=== PATIENT | female | born 1970 | race Caucasian/White ===

== ENCOUNTER 2017-01-07 11:34 | Day surgery (SDC) | payer MEDICARE, MEDICAID ==
--- NOTE | 2017-01-03 14:01 | PCM.ANEPRE ---
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 On the day of surgery, she should have an EKG for baseline, as well, Renal Function Set for baseline creatinine and K (unless labs and EKG is found which I have not found), as arrhythmia are rarely associated with dermatomyositis. Otherwise, she appears as well optimized for surgery. A recent CXR was WITHOUT fibrosis or sign of chronic aspiration/PNA. Of note, review of notes suggests dysphagia a significant problem. Review articles warn about aspiration events intra-op and suggest ETT if concern for aspiration is noted on physical exam. Having not assessed this patient, I cannot comment on this risk. Additionally, warning given regarding longer than expected duration of NMB. Consideration as to risk of succinylcholine should also be considered. Post operative respiratory depression has been noted, and the patient should be warned, if intubated, that delayed weaning from mechanical ventilation is possible. In essence, this is a very minor surgical procedure, for a needed central line, with potential grave anesthetic consequences. The patient should be fully consented for a potentially schuyler post-op course and evaluated at the bedside prior to surgery. But I do not see any reason to delay surgery. Darion Davis MD January 03, 2017 14:01
[~2017-01-07] VITALS: Ht 165.1 cm; Wt 116.0 kg
[~2017-01-07 11:34] MED LIST: ACET325C PO; ASCO-294 PO; ASPI81TA3 PO; BISA10SU61 RC; CALC600T12 PO; CHLO15MO3 MM; CHOL10008 PO; FEXO-106 PO; FLUO20CA25 PO; FLUT15.88 NS; FOLI0.4T2 PO; HYDR-3605 PO; LISI10TA PO; Lactated Ringer's 1,000 ML IV SCH; MAGN400O4 PO; METH25VI9 SUBQ; METO25TA99 PO; MYCO500T3 PO; NA P133E23 RC; NITR0.4T SL; OMEP20CA11 PO; ONDA-53 PO; POLY17PO2 PO; PRE10 PO; PREN-121 PO; SIME80TA53 PO; TRAM50TA2 PO; [UNRECOGNIZED DRUG - CODE] PO
[2017-01-07] MEDS ORDERED: Dexamethasone 4 mg/mL Inj ONE (11:35)
[2017-01-07] MEDS ORDERED: Propofol 10,000 mCg/mL 20 mL Inj ONE (11:35)
[2017-01-07] MEDS ORDERED: fentaNYL-PF 50 mCg/mL 2 mL Inj ONE (11:35)
[2017-01-07] MEDS ORDERED: MetoCLOpramide 5 mg/mL 2 mL Inj ONE (11:35)
[2017-01-07] MEDS ORDERED: MeTOProlol 1 mg/mL 5 mL Inj ONE (11:35)
[2017-01-07] MEDS ORDERED: Ondansetron 2 mg/mL 2 mL Inj ONE (11:35)
[2017-01-07 12:00] VITALS: BP 128/56; PULSE 90; RESP 14; O2SAT 95
[2017-01-07] MEDS ORDERED: Lactated Ringer's 1,000 ML IV ONE (12:34)
[2017-01-07] MEDS ORDERED: CeFAZolin Inj 2 gm / 50mL D5W IV ONE (12:39)
[2017-01-07] MEDS ORDERED: Bupivacaine-MPF 0.5% 30 mL Inj INFILTRATE ONE (15:00)
[2017-01-07] MEDS ORDERED: HepLOK Flush 100 unit/mL 5 mL Inj IVFLUSH ONE (15:00)
--- NOTE | 2017-01-07 15:26 | PCM.HPANE ---
Patient Data Date of Service: January 07, 2017 ([id number]) Surgeon Admitting Provider: Attending Provider:Geo Whatley MD Primary Care Physician:Nestor Tafoya MD Other Provider:Jeanne Bourgeois Anesthesia Reason for Visit Poor Veinus Access Ht/WT & BMI Height (Feet): 5 Height (Inches): 5 Weight (Kilograms): 116 Body Mass Index 42.00 Allergies Coded Allergies: TAPE (Verified Allergy, Unknown, Redness and irritation, 11/04/16) Past Anesthesia History Anesthesia History: Denies:: Anesthesia Reactions Diabetes History Hx Diabetes?: No Current Bedside Blood Glucose: 209 MRSA MRSA: No Medications Home Meds Incl Beta Nerissa: Yes Date Beta Nerissa Taken: January 07, 2017 Time Beta Nerissa Taken: 0800 Reported Medications Magnesium Hydroxide (Milk of Magnesia)400 Mg/5 Ml Oral.oulx448 Mg PO DAILY PRN For Constipation 10/10/16 Simethicone (Gas-X)80 Mg Leiqrf56 Mg PO TID After Meals 10/10/16 Fexofenadine 180 Mg Lakzee817 Mg PO DAILY allergies 10/10/16 Na Phos,M-B/Na Phos,Di-Ba (Fleet Enema)133 Ml Awgvb379 Ml RC DAILY PRN For Constipation 10/10/16 Bisacodyl (Dulcolax Rectal)10 Mg Supp.rect10 Mg RC DAILY PRN For Constipation 30 Days Ref 0 10/10/16 Cholecalciferol (Vitamin D3) (Vitamin D3)1,000 Unit Tab.chew1,000 Unit PO DAILY 10/10/16 Ascorbate Calcium (Vitamin C)500 Mg Exoxlw485 Mg PO DAILY 10/10/16 Prednisone (PredniSONE)10 Mg Cezawg23 Mg PO DAILY Ref 0 10/10/16 Mycophenolate Mofetil 500 Mg Tablet1,000 Mg PO BID 10/10/16 Metoprolol Succinate ER 25 Mg Tab.er.24h12.5 Mg PO DAILY Ref 0 10/10/16 Chlorhexidine Gluconate (Peridex)15 Ml Mouthwash0.5 Oz MM BID 1/2 oz in cup abd dip toothbrush into solution, brush teeth & gums twuce daily *Do not swish & spit 10/10/16 Calcium Carbonate (Calcium)600 Mg Tablet1,200 Mg PO DAILY 10/10/16 Aluminum Hydroxide 1 Ml Gfeygbqnku52 Ml PO TID 10/10/16 Folic Acid 0.4 Mg Tablet0.8 Mg PO BID 09/11/16 Tramadol 50 Mg Anegdk05 Mg PO TID PRN For Pain 08/12/16 Fluoxetine 20 Mg Jhwbtzi50 Mg PO DAILY 05/22/16 Polyethylene Glycol 3350 17 Gm Powd.pack17 Gm PO DAILY CONSTIPATION 05/22/16 Ondansetron 4 Mg Tablet4 Mg PO Q4H PRN For Nausea 05/22/16 Nitroglycerin SL (Nitrostat)0.4 Mg Tab.subl0.4 Mg SL Q5MIN PRN For Chest Pain 05/22/16 Acetaminophen 325 Mg Evtvzev712 Mg PO Q4H PAIN 05/22/16 Vit #108/Iron/FA ( One Tablet)1 Each Tablet1 Tablet PO DAILY 05/22/16 Omeprazole 20 Mg Capsule.dr20 Mg PO DAILY 05/22/16 Methotrexate Sodium (Methotrexate)50 Mg/2 Ml Vial25 Mg SUBQ Q Friday05/22/16 Lisinopril 10 Mg Czlgzg23 Mg PO DAILY 05/22/16 HydrOXYzine HCl 10 Mg Byvhki06 Mg PO BID PRN For Itching 01/30/16 Fluticasone Propionate 50 Mcg/Actuation [place].susp2 [place] NS BID 01/30/16 Aspirin Chew 81 Mg Chew81 Mg PO DAILY 01/30/16 History History of ENT Problems?: Yes HEENT History: Positive for:: Sinus Problem (seasonal allergies) Denies:: Cataracts Dysphagia Denture Type: None Teeth Condition: Tooth Decay Missing Teeth Hx of Heart Problems?: Yes Cardiovascular History: Positive for:: Cardiac Surgery (stent placement 2004) Edema Hypertension Irregular Heartbeat Denies:: Chest Pain Congestive Heart Failure Heart Murmur Pacemaker Thrombophlebitis Hx of Respiratory Problem?: Yes Respiratory History: Denies:: Asthma COPD Chest Surgery Dyspnea Emphysema Hemoptysis Pneumonia Tuberculosis Hx Neurologic Problems?: Yes Neurological History: Positive for:: Headaches Denies:: Alzheimer's Disease CVA Dementia Dizziness Parkinson's Disease Seizures TIA Hx of GI Problems?: Yes Hx of Problems?: Yes Genitourinary History: Positive for:: Urinary Tract Infection Denies:: HX of Hemodialysis Kidney Stones HX of Peritoneal Dialysis: No Female Hx: Denies:: Currently Endometriosis Pelvic Inflammatory Problems with Breasts? Skin History: Positive for:: History Skin Disorders? 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 carpal tunnel, back surgery) Hx Any Other Health Problems?: Yes Other History: Positive for:: Hospitalization Denies:: Cancer Endocrine Disease Thyroid Disease History Blood Transfusions: Denies:: Blood Transfusions Hx Diabetes: NoBedside Blood Glucose: 209 Hx Alcohol Use: NoHx Substance Use: NoHave You Smoked inLast 12 mo: No Stop/Bang Treated for Sleep Apnea?: No Do You Have a CPAP Machine?: No P-Blood Pressure: treated: Yes B- Body Mass Index > 35 kg/m2: No A- Age over 50: No N- Neck Large Circumference: No JOAQUIN Risk Assessment: Low Risk, <3 Yes Risk Assessment Category Category 1A: Patient has history of documented sleep apnea, and HAS NOT received any narcotic, sedative or anesthesia administration during this stay. Category 1B: Patient has history of documented sleep apnea, and HAS received any narcotic , sedative or anesthesia administration during this stay Category 2: Patient has SUSPECTED Obstructive Sleep Apnea, and HAS received any narcotic , sedative or anesthesia administration during this stay. Category 3: Patient has SUSPECTED Obstructive Sleep Apnea and HAS NOT received narcotic, sedative or anesthesia administration during this stay. Category 4: Outpatient in Procedural Areas with known sleep apnea or who screen positive for High Risk via the STOP/BANG questionnaire. Exam Exam Vital Signs Vital Signs Date Time Temp Pulse Resp B/P Pulse Ox O2 Delivery O2 Flow Rate FiO2 01/07/17 12:00 37.0 90 14 128/56 95 Room Air General Appearance: Alert, Oriented X3, Cooperative, No Acute Distress HEENT/AIRWAY: MP 3, Neck Movement (limited due to myopathy), Mouth Opening (>3) , Other (tmd>3) Lungs: Diminished Heart: Normal S1, Normal S2, No Murmurs/Rubs/Gallops, Other (tachycardic) Additional Information skin - erythematous, significant muscle wasting Meds/Labs/Diagnostics Admission Meds Current Medications Lactated Ringer's (Lr) 1,000 ml @ ud STK-MED ONCE IV Last administered on t 12:34; Start 01/07/17 at 12:34; Stop 01/07/17 at 12:35; Status DC Bedside Blood Glucose: 209 Labs Test 01/07/17 12:57 Sodium Level 136mEq/L (134-144) Potassium Level 4.0mEq/L (3.5-5.2) Chloride Level 97mEq/L (97-108) Carbon Dioxide Level 24mmol/L (18-29) Blood Urea Nitrogen 5mg/dL (6-24) Creatinine < 0.30mg/dL (0.57-1.00) Estimat Glomerular Filtration Rate 340mL/min (>59) Glucose Level 217mg/dL (60-99) Calcium Level 9.2mg/dL (8.5-10.1) Total Bilirubin 1.5mg/dL (0.0-1.2) Aspartate Amino Transf (AST/SGOT) 47U/L (0-50) Alanine Aminotransferase (ALT/SGPT) 49U/L (0-32) Alkaline Phosphatase 94U/L (25-150) Total Protein 7.3g/dL (6.4-8.4) Albumin 3.7g/dL (3.4-5.0) Plan Impression Patient chart reviewed, patient interviewed and anesthestic plan with risks, benefits, and alternatives discussed, and informed consent obtained. ASA Physical Status: ASA4 Life Threatening Anesthetic Plan: GA Bene/Risks/Altern/Consents: Yes HP Complete Prior to Induction: Yes Pal Canales MD January 07, 2017 15:26
[2017-01-07] MEDS ORDERED: Lactated Ringer's 1,000 ML IV SCH (15:53)
[2017-01-07] MEDS ORDERED: Lactated Ringer's 500 ML IV PRN (15:53)
[2017-01-07] MEDS ORDERED: Ondansetron 2 mg/mL 2 mL Inj IVPUSH PRN ×2 (15:55→16:00)
[2017-01-07] MEDS ORDERED: Dexamethasone 4 mg/mL Inj IVPUSH PRN (15:55)
[2017-01-07] MEDS ORDERED: HYDROmorphone 1 mg/mL Inj IVPUSH PRN (15:55)
[2017-01-07] MEDS ORDERED: MetoCLOpramide 5 mg/mL 2 mL Inj IVPUSH PRN ×2 (15:55→16:00)
[2017-01-07] MEDS ORDERED: fentaNYL-PF 50 mCg/mL 2 mL Inj IVPUSH PRN (15:55)
[2017-01-07] MEDS ORDERED: Phenylephrine 10,000 mCg/mL Inj IVPUSH PRN (15:55)
[2017-01-07] MEDS ORDERED: EPHEDrine Sulfate 50 mg/mL Inj IVPUSH PRN (15:55)
[2017-01-07] MEDS ORDERED: HYDROcodone-APAP 5-325 mg Tablet PO PRN (16:00)
[2017-01-07 16:05] VITALS: BP 133/52; PULSE 91; RESP 15; O2SAT 99
[2017-01-07 16:09] VITALS: BP 120/61; PULSE 91; RESP 15; O2SAT 100
[2017-01-07 16:14] VITALS: BP 116/69; PULSE 92; RESP 17; O2SAT 96
--- NOTE | 2017-01-07 16:19 | OP ---
[address] [address] OPERATIVE REPORT PATIENT: ESTEBAN DAVIES : 1970 MR#: [id number] ADMIT: 01/07/2017 JOB ID: [id number] DATE OF SURGERY: 01/07/2017 PREOPERATIVE DIAGNOSIS(ES): Dermatomyositis. POSTOPERATIVE DIAGNOSIS(ES): Dermatomyositis. PROCEDURE: 1. Left subclavian venous Power Port. 2. Use of and interpretation of fluoroscopy SURGEON: Geo Whatley MD. INDICATIONS: A 46-year-old female with dermatomyositis who needs a Power Port for treatment. FINDINGS: The catheter was placed into the proximal right atrium. There was good return of blood. No resistance to inflow and no pneumothorax by fluoroscopy. PROCEDURE: At the beginning and end of the operation, the SCOAP checklist was completed. She received an LMA anesthetic and local anesthesia with 0.5% bupivacaine. She received preoperative antibiotics. Her neck was extended, and using ChloraPrep, prepped and draped in the usual fashion. After injecting local anesthesia, a small incision was made below the left clavicle, The subclavian vein was accessed, and using fluoroscopic control, a guidewire positioned into the superior vena cava. The pocket for the reservoir was created, the catheter tunneled between the two incisions, securely connected to the power port which was flushed with heparinized saline and secured to the chest wall with interrupted 2-0 Prolene sutures. The catheter was cut to an appropriate length, and then with a split sheath introducer, it was inserted into the proximal right atrium with good return of blood, no resistance to inflow. No pneumothorax was identified. The incisions were closed with subcutaneous 3-0 Vicryl and subcuticular 4-0 Vicryl and Dermabond. The estimated blood loss was 10 cc. There were no apparent complications. The final sponge, needle and instrument counts were announced as correct and the patient was returned to recovery room in stable condition. [facility]ITALEvans
[2017-01-07 16:21] VITALS: BP 123/68; PULSE 91; RESP 16; O2SAT 94
[2017-01-07 16:53] VITALS: BP 145/82; PULSE 94; RESP 16; O2SAT 94
--- NOTE | 2017-01-08 08:11 | PCM.ANEP1 ---
Post Anesthesia Phase 1 PACU Phase 1 Assessment Date of Service: January 07, 2017 ([id number]) Anesthetic Administered: GA Level of Alertness: Awake, talking AUGUST's with Equal Strength: No (baseline due to myopathy) Pain: No Pain Scale Score: 0 Nausea or Vomiting: No Oxygen Delivery: Simple Mask Lungs: Diminished Complications: No Pal Canales MD January 08, 2017 08:11
[2017-02-06] MEDS ORDERED: AZEL23SP NS (15:47)
[2017-02-06] MEDS ORDERED: GUAI1CAP65 PO (15:47)
[2017-02-06] MEDS ORDERED: LOPE2CAP PO (15:47)
[2017-02-06] MEDS ORDERED: FLUT9.9S NS (15:47)
[2017-02-06] MEDS ORDERED: KETO120S3 TP (15:47)
== END 2017-01-07 23:59 | disposition home or self-care (01) ==
LOC: SAS 11:34
PROVIDERS: ATTEND Surgery
DX: I87.8 Other specified disorders of veins (principal); M33.90 Dermatopolymyositis, unspecified, organ involvement unspecified; I10 Essential (primary) hypertension; I25.10 Atherosclerotic heart disease of native coronary artery without angina pectoris; E78.5 Hyperlipidemia, unspecified; M41.9 Scoliosis, unspecified; F32.9 Major depressive disorder, single episode, unspecified; F41.9 Anxiety disorder, unspecified; E09.9 Drug or chemical induced diabetes mellitus without complications; K21.9 Gastro-esophageal reflux disease without esophagitis; I25.2 Old myocardial infarction; Z95.5 Presence of coronary angioplasty implant and graft; Z79.82 Long term (current) use of aspirin
CPT/HCPCS: 36415; 36561; 77001; 80053; 93005; C1788; J1100; J1642; J2250; J2405; J2765; J3010; J7120

== ENCOUNTER 2017-02-07 00:41 | Day surgery (SDC) | payer MEDICARE, MEDICAID ==
[~2017-02-07] VITALS: Ht 165.1 cm; Wt 108.6 kg
[~2017-02-07 00:41] MED LIST changes: +AZEL23SP NS; +FLUT9.9S NS; +GUAI1CAP65 PO; +KETO120S3 TP; +LOPE2CAP PO; -Lactated Ringer's 1,000 ML IV SCH
[2017-02-07] MEDS ORDERED: fentaNYL-PF 50 mCg/mL 2 mL Inj ONE (00:42)
[2017-02-07] MEDS ORDERED: Propofol 10,000 mCg/mL 20 mL Inj ONE (00:42)
[2017-02-07] MEDS ORDERED: Lactated Ringer's 1,000 ML IV SCH (05:00)
[2017-02-07 09:27] VITALS: BP 142/83; PULSE 87; RESP 12; O2SAT 95
--- NOTE | 2017-02-07 09:41 | NUR ---
TAYLOR admit Admitted to [facility] about 0915. VSS. Denies pain. IVT to access PAC. Unable to reconcile meds as [facility] did not send med list. Procedure and recovery reviewed. Verbalizes understanding. Awaiting IVT and anesthesia. See EMR for further info and assessment.
[2017-02-07 11:45] VITALS: BP 116/72; PULSE 94; RESP 17; O2SAT 93
--- NOTE | 2017-02-07 11:58 | PCM.ANEP1 ---
Post Anesthesia PACU Phase 1 Assessment Vital Signs Vital Signs Date Time Temp Pulse Resp B/P Pulse Ox O2 Delivery O2 Flow Rate FiO2 02/07/17 11:45 94 17 116/72 93 02/07/17 09:27 37.2 87 12 142/83 95 Room Air Anesthetic Administered: MAC Level of Alertness: Awake, talking Pain: No Nausea or Vomiting: No CV Function & Hydration Stable: Yes Airway Device: Oxygen Delivery: Room Air Lungs: Clear to Auscultation Dermatome Level: Full Sensation PACU Phase 2 Assessment Complications: No Patient Instructions Provided: N/A Jayant Holt MD Feb 07, 2017 11:58
--- NOTE | 2017-02-07 11:58 | PCM.HPANE ---
Patient Data Surgeon Admitting Provider: Attending Provider:Nestor Tafoya MD Primary Care Physician:Nestor Tafoya MD Other Provider:Jeanne Bourgeois Anesthesia Reason for Visit Dermatomyositis Ht/WT & BMI Body Mass Index Allergies Coded Allergies: TAPE (Verified Allergy, Unknown, Redness and irritation, 02/07/17) Past Anesthesia History Anesthesia History: Denies:: Anesthesia Reactions Diabetes History Hx Diabetes?: No MRSA MRSA: No Medications Reported Medications Azelastine/Fluticasone (Dymista Nasal [place])23 Gm [place].pump23 Gm NS 02/06/17 Fluticasone Propionate (Flonase Allergy Relief)50 Mcg/Actuation [place].susp9.9 Ml NS 02/06/17 Ketoconazole 120 Ml Kesdarb688 Ml TP 02/06/17 Loperamide 2 Mg Capsule2 Mg PO 02/06/17 Guaifenesin/Dextromethorphan (Robitussin Yajzx-Oubav-Erzp Dm)200 Mg-10 Mg Capsule1 Each PO 02/06/17 Magnesium Hydroxide (Milk of Magnesia)400 Mg/5 Ml Oral.uech793 Mg PO DAILY PRN For Constipation 10/10/16 Simethicone (Gas-X)80 Mg Eiyahn10 Mg PO TID After Meals 10/10/16 Fexofenadine 180 Mg Pgdktv277 Mg PO DAILY allergies 10/10/16 Na Phos,M-B/Na Phos,Di-Ba (Fleet Enema)133 Ml Owuqq584 Ml RC DAILY PRN For Constipation 10/10/16 Bisacodyl (Dulcolax Rectal)10 Mg Supp.rect10 Mg RC DAILY PRN For Constipation 30 Days Ref 0 10/10/16 Cholecalciferol (Vitamin D3) (Vitamin D3)1,000 Unit Tab.chew1,000 Unit PO DAILY 10/10/16 Ascorbate Calcium (Vitamin C)500 Mg Garzrw513 Mg PO DAILY 10/10/16 Prednisone (PredniSONE)10 Mg Tykwcw01 Mg PO DAILY Ref 0 10/10/16 Mycophenolate Mofetil 500 Mg Tablet1,000 Mg PO BID 10/10/16 Metoprolol Succinate ER 25 Mg Tab.er.24h12.5 Mg PO DAILY Ref 0 10/10/16 Chlorhexidine Gluconate (Peridex)15 Ml Mouthwash0.5 Oz MM BID 1/2 oz in cup abd dip toothbrush into solution, brush teeth & gums twuce daily *Do not swish & spit 10/10/16 Calcium Carbonate (Calcium)600 Mg Tablet1,200 Mg PO DAILY 10/10/16 Aluminum Hydroxide 1 Ml Jchydujgtm66 Ml PO TID 10/10/16 Folic Acid 0.4 Mg Tablet0.8 Mg PO BID 09/11/16 Tramadol 50 Mg Dowrlh11 Mg PO TID PRN For Pain 08/12/16 Fluoxetine 20 Mg Irvadxm50 Mg PO DAILY 05/22/16 Polyethylene Glycol 3350 17 Gm Powd.pack17 Gm PO DAILY CONSTIPATION 05/22/16 Ondansetron 4 Mg Tablet4 Mg PO Q4H PRN For Nausea 05/22/16 Nitroglycerin SL (Nitrostat)0.4 Mg Tab.subl0.4 Mg SL Q5MIN PRN For Chest Pain 05/22/16 Acetaminophen 325 Mg Uodfbcv973 Mg PO Q4H PAIN 05/22/16 Vit #108/Iron/FA ( One Tablet)1 Each Tablet1 Tablet PO DAILY 05/22/16 Omeprazole 20 Mg Capsule.dr20 Mg PO DAILY 05/22/16 Methotrexate Sodium (Methotrexate)50 Mg/2 Ml Vial25 Mg SUBQ Q Friday05/22/16 Lisinopril 10 Mg Lhtmxq21 Mg PO DAILY 05/22/16 HydrOXYzine HCl 10 Mg Krfokn66 Mg PO BID PRN For Itching 01/30/16 Fluticasone Propionate 50 Mcg/Actuation [place].susp2 [place] NS BID 01/30/16 Aspirin Chew 81 Mg Chew81 Mg PO DAILY 01/30/16 History History of ENT Problems?: Yes HEENT History: Positive for:: Sinus Problem (seasonal allergies) Denies:: Cataracts Dysphagia Denture Type: None Teeth Condition: Within Normal Limits Hx of Heart Problems?: Yes Cardiovascular History: Positive for:: Cardiac Surgery (stent placement 2004) Edema Hypertension Irregular Heartbeat Denies:: Chest Pain Congestive Heart Failure Heart Murmur Pacemaker Thrombophlebitis Hx of Respiratory Problem?: Yes Respiratory History: Denies:: Asthma COPD Chest Surgery Dyspnea Emphysema Hemoptysis Pneumonia Tuberculosis Hx Neurologic Problems?: Yes Neurological History: Positive for:: Headaches Denies:: Alzheimer's Disease CVA Dementia Dizziness Parkinson's Disease Seizures Hx of GI Problems?: Yes Hx of Problems?: Yes Genitourinary History: Positive for:: Urinary Tract Infection Denies:: HX of Hemodialysis Kidney Stones HX of Peritoneal Dialysis: No Female Hx: Denies:: Currently Endometriosis Pelvic Inflammatory Problems with Breasts? Skin History: Positive for:: History Skin Disorders? (dermatomyositis) Pressure Ulcers (open wounds/cysts buttocks) Hx Musculoskeletal Problems?: Yes Musculoskeletal History: Denies:: Back Injury (Scoliosis, palma in back) Joint Replacement Musculoskeletal Trauma Hx of Psycho/Social Problems?: Yes Psycho Social History: Positive for:: Hx Depression Denies:: Anxiety Bipolar Disorder Suicide Attempt Hx Surgeries?: Yes (Hernia repairx2, L. carpal tunnel, back surgery) Hx Any Other Health Problems?: Yes Other History: Positive for:: Hospitalization Denies:: Cancer Endocrine Disease Thyroid Disease History Blood Transfusions: Denies:: Blood Transfusions Hx Diabetes: No Hx Alcohol Use: NoHx Substance Use: NoHave You Smoked inLast 12 mo: No Stop/Bang Risk Assessment Category Category 1A: Patient has history of documented sleep apnea, and HAS NOT received any narcotic, sedative or anesthesia administration during this stay. Category 1B: Patient has history of documented sleep apnea, and HAS received any narcotic , sedative or anesthesia administration during this stay Category 2: Patient has SUSPECTED Obstructive Sleep Apnea, and HAS received any narcotic , sedative or anesthesia administration during this stay. Category 3: Patient has SUSPECTED Obstructive Sleep Apnea and HAS NOT received narcotic, sedative or anesthesia administration during this stay. Category 4: Outpatient in Procedural Areas with known sleep apnea or who screen positive for High Risk via the STOP/BANG questionnaire. Exam Exam General Appearance: Alert, Oriented X3, Cooperative, No Acute Distress HEENT/AIRWAY: MP 2 Lungs: Clear to Auscultation Heart: Exam Unremarkable Plan Impression Patient chart reviewed, patient interviewed and anesthestic plan with risks, benefits, and alternatives discussed, and informed consent obtained. ASA Physical Status: ASA3 Severe Disease Anesthetic Plan: MAC Bene/Risks/Altern/Consents: Yes HP Complete Prior to Induction: Yes Jayant Holt MD Feb 07, 2017 07:20
[2017-02-07 12:00] VITALS: BP 114/74; PULSE 94; RESP 17; O2SAT 93
[2017-02-07 12:15] VITALS: BP 116/72; PULSE 94; RESP 17; O2SAT 93
--- NOTE | 2017-02-07 13:03 | NUR ---
transfer to [facility] Pt had partial MRI as she was unable to fit her pelvic into the MRI tube, she tolerated procedure well with anesthesia, pt Alert and oriented x3, VSS and WNL on RA at time of discharge, port de-accessed by IV therapy.
--- NOTE | 2017-02-07 18:04 | DRSVH ---
PROCEDURE: MRI FEMUR RIGHT WITH AND WITHOUT CONTRAST ([id number]) INDICATIONS: DERMATOMYOSITIS TECHNIQUE: Noncontrast coronal T1 spin echo and STIR, sagittal T1 spin echo with fat saturation and STIR, axial T1 spin echo and T2 fast spin echo with fat saturation. After the administration of contrast, axial/ sagittal/coronal T1 spin echo with fat saturation through the right thigh. COMPARISON: [facility], CR, XR KNEE ARTHRITIC SERIES BI, 01/05/2016, 14:38. FINDINGS: Image quality: Diagnostic Bones: No acute fracture or dislocation is evident involving the right femur. Heterogeneous signal t hroughout the proximal and mid aspect of the right femoral shaft is identified without a focal mass l esion evident. There is questionable enhancement along the periphery of the bone. However, no defin able lesion is evident and this appearance may be on the basis of red marrow reconversion superimpose d on prominent osteopenia. There are at least moderate degenerative changes present involving the ri ght hip and right knee. Soft tissues: Extensive edema and mild to moderate atrophy is noted involving all of the muscles of t he right thigh, including the flexor, extensor, adductor, and gluteal muscles. Questionable areas of fluid versus more prominent edema within the deep fascial regions may be present along the thigh, be st appreciated along the greater trochanteric bursa. No loculated fluid collections or enhancement o f the fascial planes is evident. Areas of mild subcutaneous edema are noted. Please note that the t endinous structures of the knee and hip are not adequately evaluated on this exam. Included soft tis sues of the pelvis are grossly unremarkable, but not included adequately. IMPRESSION: 1. Prominent atrophy and moderate edema of the right thigh muscles is compatible with the patient's history of dermatomyositis. 2. Questionable edema along the deep fascial planes without associated enhancement likely is technic al related to inhomogeneous fat suppression. However, clinical correlation to exclude fasciitis is r ecommended. 3. Moderate fluid within the greater trochanteric bursa may represent bursitis. 4. Heterogeneous signal and questionable subtle enhancement along the periphery of the mid upper fem ur probably is related to red marrow reconversion superimposed on prominent osteopenia. A definite b one lesion is not appreciated. Conventional radiographic imaging of the femur is recommended for cor relation. Dictated by: Dick Mckeon M.D. on 02/07/2017 at 16:20 Approved by: Dick Mckeon M.D. on 02/07/2017 at 17:02
--- NOTE | 2017-02-07 18:09 | DRSVH ---
PROCEDURE: MRI FEMUR LEFT WITH AND WITHOUT CONTRAST ([id number]) INDICATIONS: DERMATOMYOSITIS TECHNIQUE: Noncontrast coronal T1 spin echo and STIR, sagittal T1 spin echo with fat saturation and STIR, axial T1 spin echo and T2 fast spin echo with fat saturation. After the administration of contrast, axial/ sagittal/coronal T1 spin echo with fat saturation through the left thigh. COMPARISON: [facility], CR, XR KNEE ARTHRITIC SERIES BI, 01/05/2016, 14:38. FINDINGS: Image quality: Diagnostic. However, there is inhomogeneous fat suppression on the fat suppressed kendall ges. Bones: There is no acute fracture or dislocation identified involving the left femur. Heterogeneous slightly increased signal on the fluid sensitive and intermediate to low signal on the T1 images is e vident along the periphery of the bone involving the proximal to mid left femoral shaft. No identifi able or focal mass lesion is evident. There is questionable subtle enhancement within this region on the postcontrast images. At least moderate degenerative changes of the imaged portions of the left hip and left knee are present. However, these joints are not well evaluated on this study. Soft tissues: Extensive edema and mild to moderate atrophy of the muscles of the left thigh are prese nt, including the extensor, abductor, flexor, and gluteal muscles. Questionable areas of fluid versu s more prominent focal edema involving the deep fascial planes throughout the thigh are present. How ever, there is no associated enhancement on the postcontrast images within these regions. Fluid is s een within the greater trochanteric bursa. No loculated fluid collection is present. The tendon is structures of the knee and hip are not adequately evaluated. The included soft tissues of the pelvis are grossly unremarkable, but not adequately seen. No definite soft tissue masses or suspicious sof t tissue enhancement is appreciated. Areas of subcutaneous edema are noted. IMPRESSION: 1. Prominent atrophy and edema of the left thigh muscles is compatible with the patient's history of dermatomyositis. 2. Questionable edema within the deep fascial planes without enhancement may be artifactual related to inhomogeneous fat suppression. Clinical correlation to exclude fasciitis is recommended. 3. Fluid within the greater trochanteric bursa may be related to bursitis. 4. Heterogeneous marrow signal with questionable subtle enhancement probably represents red marrow r econversion superimposed on prominent osteopenia. A definite bone lesion is not appreciated. Conven tional radiographic imaging of the left femur is recommended for correlation. Dictated by: Dick Mckeon M.D. on 02/07/2017 at 17:02 Approved by: Dick Mckeon M.D. on 02/07/2017 at 17:07
== END 2017-02-07 23:59 | disposition home or self-care (01) ==
LOC: SOUO 00:41
PROVIDERS: ATTEND Radiology Diagnostic Radiology
DX: M33.90 Dermatopolymyositis, unspecified, organ involvement unspecified (principal); Z79.52 Long term (current) use of systemic steroids
CPT/HCPCS: 73720; A9585; J2250; J3010